=== PATIENT | male | born 1980 | race Two or more races ===

== ENCOUNTER 2020-02-01 09:58 | Emergency (ER) | payer MEDICARE, MEDICAID ==
[~2020-02-01] VITALS: Ht 175.3 cm; Wt 113.4 kg
[2020-02-01] MEDS ORDERED: cloNIDine HCL 0.1 MG TAB ONE (10:05)
[2020-02-01] MEDS ORDERED: cloNIDine HCL 0.1 MG TAB PO ONE (10:15)
[2020-02-01] MEDS ORDERED: KETOROLAC TROMETH 60MG/2ML VIAL IM ONE (10:45)
[2020-02-01 11:20] VITALS: BP 144/90
== END 2020-02-01 11:22 | disposition home or self-care (01) ==
LOC: ER 09:58
DX: B02.9 Zoster without complications (principal); I10 Essential (primary) hypertension; E78.5 Hyperlipidemia, unspecified
CPT/HCPCS: 96372; 99283; J1885; J7030